=== PATIENT | female | born 1995 | race Two or more races ===

== ENCOUNTER 2024-03-16 10:00 | Observation (INO) | payer MEDICAID ==
[2024-03-16] MEDS ORDERED: PREN-96 PO (10:46)
[2024-03-16 11:14] LABS: Basophils # (auto) 0 10 ^3/uL (0-0.2); Basophils % (auto) 0.1 % (0.0-2.0); Eosinophils # (auto) 0.1 10 ^3/uL (0-0.8); Hematocrit 38.4 % (36.0-46.0); Hemoglobin 12.9 g/dL (12.2-16.2); Lymphocytes # (auto) 2.6 10 ^3/uL (0.4-5.4); Lymphocytes % (auto) 23.2 % (10.0-50.0); Mean Corpuscular Hemoglobin 27.8 pg (28.0-32.0); Mean Corpuscular Hgb Conc. 33.6 g/dL (32.0-36.0); Mean Corpuscular Volume 82.9 fL (80.0-100.0); Monocytes # (auto) 0.5 10 ^3/uL (0-1.3); Monocytes % (auto) 4.2 % (0.0-12.0); Neutrophils # (auto) 7.9 10 ^3/uL (1.6-8.6); Neutrophils % (auto) 71.5 % (37.0-80.0); Red Blood Cells 4.63 10^6/uL (4.0-5.20); Red Cell Distribution Width 14.6 % (11.8-14.3); White Blood Cell 11.1 10^3/uL (4.4-10.8)
[2024-03-16 11:42] LABS: Alanine Aminotransferase 15 U/L (7-40); Albumin 3.7 g/dL (3.2-4.8); Alkaline Phosphatase 331 U/L (46-116); Anion Gap 9 (5-15); Aspartate Aminotransferase 16 U/L (13-40); Blood Urea Nitrogen 7 mg/dL (9-23); Calcium 9.6 mg/dL (8.7-10.4); Carbon Dioxide 22 mmol/L (20-30); Chloride 106 mmol/L (98-107); Glucose 95 mg/dL (74-106); Potassium 3.6 mmol/L (3.5-5.1); Sodium 137 mmol/L (136-145)
[2024-03-16 11:43] LABS: Bilirubin, Total 0.7 mg/dL (0.2-1.0); Total Protein 6.3 g/dL (5.7-8.2)
== END 2024-03-16 13:05 | disposition home or self-care (01) ==
LOC: LDRP 10:00
PROVIDERS: ADMIT Obstetrics & Gynecology; ATTEND Obstetrics & Gynecology
DX: O26.893 Other specified pregnancy related conditions, third trimester (principal); L29.9 Pruritus, unspecified; Z3A.38 38 weeks gestation of pregnancy
CPT/HCPCS: 36415; 59025; 76818; 80053; 81002; 85025; 94760; G0378

== ENCOUNTER 2024-03-18 21:15 | Inpatient (IN) | payer MEDICAID ==
[~2024-03-18] VITALS: Ht 160 cm; Wt 89.8 kg
[~2024-03-18 21:15] MED LIST: PREN-96 PO
[2024-03-18] MEDS ORDERED: BUTORPHANOL TARTRATE 2 MG/1 ML VIAL IV PRN ×2 (21:30)
[2024-03-18] MEDS ORDERED: NALBUPHINE HCL 10 MG/1ml INJECTION IV PRN (21:30)
[2024-03-18] MEDS ORDERED: NALBUPHINE HCL 10 MG/1ml INJECTION IM PRN (21:30)
[2024-03-18 22:03] LABS: Basophils # (auto) 0 10 ^3/uL (0-0.2); Basophils % (auto) 0.4 % (0.0-2.0); Eosinophils # (auto) 0.1 10 ^3/uL (0-0.8); Eosinophils % (auto) 0.7 % (0.0-7.0); Hematocrit 39.3 % (36.0-46.0); Hemoglobin 13.5 g/dL (12.2-16.2); Lymphocytes # (auto) 2.7 10 ^3/uL (0.4-5.4); Lymphocytes % (auto) 25.2 % (10.0-50.0); Mean Corpuscular Hgb Conc. 34.3 g/dL (32.0-36.0); Mean Corpuscular Volume 81.5 fL (80.0-100.0); Monocytes # (auto) 0.6 10 ^3/uL (0-1.3); Monocytes % (auto) 5.3 % (0.0-12.0); Neutrophils # (auto) 7.3 10 ^3/uL (1.6-8.6); Neutrophils % (auto) 68.4 % (37.0-80.0); Nucleated Red Blood Cells % 0.2 %; Red Blood Cells 4.82 10^6/uL (4.0-5.20); Red Cell Distribution Width 14.5 % (11.8-14.3); White Blood Cell 10.7 10^3/uL (4.4-10.8)
[2024-03-18 22:07] LABS: Urine Bacteria FEW /hpf (None Seen); Urine Blood Negative /uL (Negative); Urine Clarity Turbid (Clear); Urine Color Yellow (Yellow); Urine Mucus FEW (None Seen); Urine Protein, UAD 1+ (Negative); Urine Specific Gravity 1.027 (1.001-1.035); Urine Urobilinogen 2 mg/dL (Negative); Urine WBC 43 /hpf (0 - 5)
[2024-03-18 22:19] LABS: Amphetamine Screen, Urine Neg (NEGATIVE); Barbiturate Scree,Urine Neg (NEGATIVE); Benzodiazephine Screen, Urine Neg (NEGATIVE); Cocaine Screen, Urine Neg (NEGATIVE); Opiate Scree,Urine Neg (NEGATIVE)
[2024-03-18 22:20] LABS: Cannabinoid Screen, Urine Neg (NEGATIVE); Phencyclidine Screen, Urine Neg (NEGATIVE)
[2024-03-18 22:23] LABS: Alanine Aminotransferase 16 U/L (7-40); Albumin 4.1 g/dL (3.2-4.8); Alkaline Phosphatase 367 U/L (46-116); Anion Gap 10 (5-15); Aspartate Aminotransferase 14 U/L (13-40); BUN/Creatinine Ratio 11.1 (10.0-20.0); Bilirubin, Total 0.9 mg/dL (0.2-1.0); Blood Urea Nitrogen 7 mg/dL (9-23); Calcium 9.8 mg/dL (8.7-10.4); Carbon Dioxide 21 mmol/L (20-30); Chloride 107 mmol/L (98-107); Glucose 85 mg/dL (74-106); Potassium 3.8 mmol/L (3.5-5.1); Sodium 138 mmol/L (136-145); Total Protein 6.8 g/dL (5.7-8.2)
[2024-03-18 22:34] LABS: INR 0.96 (0.9-1.15); Partial Thromboplastin Time 25.6 SEC (24.5-34.5); Prothrombin Time 10.2 sec (9.3-11.8)
[2024-03-18] MEDS: LACTATED RINGER'S 1,000 ML IV SCH (22:58)
[2024-03-19] MEDS: ceFAZolin 1GM/50ML 50 ML IV SCH ×2 (00:13→14:19)
[2024-03-19] MEDS: miSOPROStol 50 MCG per PRE-CUT 1/2 TAB PO PRN (04:36)
[2024-03-19] MEDS: URSODIOL 300 MG CAP PO SCH (11:49)
[2024-03-19] MEDS ORDERED: TERBUTALINE SULFATE 1 MG/ML 1ML VIAL SC PRN (14:00)
[2024-03-19] MEDS: LACT. RINGERS/OXYTOCIN 20UNITS 1,000 ML IV SCH (14:41)
[2024-03-19] MEDS ORDERED: LIDOCAINE HCL 2 %PF INJ 10ML AMP IJ ONE (18:45)
[2024-03-19] MEDS ORDERED: LIDOCAINE 1%-Mpf/Epinephrine 1:200,000 30ml VIAL IJ ONE (18:45)
[2024-03-19] MEDS ORDERED: ePHEDrine SULFATE 50 MG/ML AMP IV ONE (18:45)
[2024-03-19] MEDS ORDERED: NALOXONE HCL 0.4 MG/ML VIAL IV ONE (18:45)
[2024-03-19] MEDS: fentaNYL CITRATE 100 MCG/2 ML VL EPI ONE (19:53)
[2024-03-19] MEDS: ROPIVACAINE HCL 200 ML ONE (19:54)
[2024-03-19] MEDS: diphenhdrAMINE HCL 50 MG/1 ML VL IV ONE (20:33)
[2024-03-20] MEDS ORDERED: ACETAMINOPHEN 325 MG TAB PO PRN (07:45)
[2024-03-20] MEDS: LACTATED RINGER'S 500 ML IV ONE (07:47)
[2024-03-20] MEDS ORDERED: miSOPROStol 100 mcg TAB SL PRN (10:30)
[2024-03-20] MEDS ORDERED: miSOPROStol 100 mcg TAB PR PRN (10:30)
[2024-03-20] MEDS: DIPHENOXYLATE W/ATROPINE 2.5 MG TAB PO SCH (10:42)
[2024-03-20] MEDS: LIDOCAINE 2%HCL (LOCAL ANESTH.) INJ 20ML MDV IJ PRN (10:44)
[2024-03-20] MEDS: ONDANSETRON HCL 4 MG/2 ML VIAL IV PRN (10:44)
[2024-03-20] MEDS: CARBOPROST TROMETHAMINE 250 MCG/1ML VIAL IM PRN (10:44)
[2024-03-20] MEDS: TRANEXAMIC ACID 1,000 MG in SODIUM CHL 0.9% 100 ML IV ONE (10:45)
[2024-03-20] MEDS: LACT. RINGERS/OXYTOCIN 20UNITS 500 ML IV ONE ×2 (10:46→10:47)
[2024-03-20] MEDS: ROPIVACAINE HCL 200 ML ONE (10:49)
[2024-03-20] MEDS: METHYLERGONOVINE MALEATE 0.2 MG/ML AMP IM PRN (10:52)
[2024-03-20] MEDS ORDERED: ONDANSETRON ODT 4 MG TAB PO PRN (13:15)
[2024-03-20] MEDS ORDERED: miSOPROStol 100 mcg TAB PO ONE (13:39)
[2024-03-20 15:00] VITALS: BP 119/74; PULSE 83; RESP 18; TEMP 99.4; O2SAT 98
[2024-03-20] MEDS ORDERED: DIPHENOXYLATE W/ATROPINE 2.5 MG TAB PO PRN (16:15)
[2024-03-20 16:16] LABS: Basophils # (auto) 0 10 ^3/uL (0-0.2); Basophils % (auto) 0.1 % (0.0-2.0); Eosinophils # (auto) 0 10 ^3/uL (0-0.8); Hematocrit 31.7 % (36.0-46.0); Hemoglobin 10.9 g/dL (12.2-16.2); Lymphocytes # (auto) 1.5 10 ^3/uL (0.4-5.4); Lymphocytes % (auto) 7.9 % (10.0-50.0); Mean Corpuscular Hemoglobin 28.2 pg (28.0-32.0); Mean Corpuscular Hgb Conc. 34.3 g/dL (32.0-36.0); Mean Corpuscular Volume 82.2 fL (80.0-100.0); Monocytes # (auto) 1.1 10 ^3/uL (0-1.3); Monocytes % (auto) 5.6 % (0.0-12.0); Neutrophils # (auto) 16.7 10 ^3/uL (1.6-8.6); Neutrophils % (auto) 86.4 % (37.0-80.0); Red Blood Cells 3.86 10^6/uL (4.0-5.20); Red Cell Distribution Width 14.7 % (11.8-14.3); White Blood Cell 19.3 10^3/uL (4.4-10.8)
[2024-03-20] MEDS: IBUPROFEN 600 MG TAB PO PRN (17:44)
[2024-03-20] MEDS: FAMOTIDINE (10MG/ML) 2ML VL IV ONE (18:20)
[2024-03-20 19:00] VITALS: BP 116/64; PULSE 113; RESP 18; TEMP 98.5; O2SAT 98
[2024-03-20] MEDS: DOCUSATE SOD 100 MG CAP PO SCH (21:54)
[2024-03-20] MEDS: PHISODERM TOP SOLN 240ML BTL TOP PRN (21:57)
[2024-03-20] MEDS: DERMOPLAST 60ML BOTTLE TOP PRN (21:57)
[2024-03-20] MEDS: WITCH HAZEL-GLYCERIN PAD TOP PRN (21:57)
[2024-03-20] MEDS ORDERED: DIPHENOXYLATE W/ATROPINE 2.5 MG TAB PO SCH (22:00)
[2024-03-20 23:00] VITALS: BP 115/62; PULSE 107; RESP 16; TEMP 98.6; O2SAT 97
[2024-03-21 03:00] VITALS: BP 115/67; PULSE 104; RESP 16; TEMP 98.4; O2SAT 97
[2024-03-21 07:00] VITALS: BP 117/68; PULSE 95; RESP 16; TEMP 98.6; O2SAT 97
[2024-03-21 08:28] LABS: Basophils # (auto) 0 10 ^3/uL (0-0.2); Basophils % (auto) 0.2 % (0.0-2.0); Eosinophils # (auto) 0.1 10 ^3/uL (0-0.8); Eosinophils % (auto) 0.4 % (0.0-7.0); Hematocrit 25.6 % (36.0-46.0); Hemoglobin 8.5 g/dL (12.2-16.2); Lymphocytes # (auto) 2.9 10 ^3/uL (0.4-5.4); Lymphocytes % (auto) 21.2 % (10.0-50.0); Mean Corpuscular Hemoglobin 27.7 pg (28.0-32.0); Mean Corpuscular Hgb Conc. 33.3 g/dL (32.0-36.0); Mean Corpuscular Volume 83.2 fL (80.0-100.0); Monocytes # (auto) 0.8 10 ^3/uL (0-1.3); Monocytes % (auto) 5.6 % (0.0-12.0); Neutrophils # (auto) 9.8 10 ^3/uL (1.6-8.6); Neutrophils % (auto) 72.6 % (37.0-80.0); Red Blood Cells 3.08 10^6/uL (4.0-5.20); White Blood Cell 13.5 10^3/uL (4.4-10.8)
[2024-03-21] MEDS: MEASLES, MUMPS & RUBELLA VAC(MMRII) 0.5ML SC ONE (12:55)
[2024-03-21] MEDS: TETANUS-DIPTH-ACEL PERTUSSIS 0.5ML SYR Tdap IM ONE (12:56)
== END 2024-03-21 13:30 | disposition home or self-care (01) | DRG 560 ==
LOC: LDRP 21:15
PROVIDERS: ADMIT Obstetrics & Gynecology; ATTEND Obstetrics & Gynecology
PROC: 10D07Z6 Extraction of Products of Conception, Vacuum, Via Natural or Artificial Opening (ICD-10-PCS; principal; 2024-03-20)
PROC: 3E0R3BZ Introduction of Anesthetic Agent into Spinal Canal, Percutaneous Approach (ICD-10-PCS; 2024-03-20)
PROC: 0KQM0ZZ Repair Perineum Muscle, Open Approach (ICD-10-PCS; 2024-03-20)
PROC: 00HU33Z Insertion of Infusion Device into Spinal Canal, Percutaneous Approach (ICD-10-PCS; 2024-03-20)
PROC: 3E033VJ Introduction of Other Hormone into Peripheral Vein, Percutaneous Approach (ICD-10-PCS; 2024-03-20)
DX: O26.643 Intrahepatic cholestasis of pregnancy, third trimester (principal); Z37.0 Single live birth; O72.1 Other immediate postpartum hemorrhage; O70.1 Second degree perineal laceration during delivery; Z3A.38 38 weeks gestation of pregnancy
CPT/HCPCS: 36415; 59025; 59409; 62282; 80053; 80307; 81001; 85025; 85610; 85730; 86592; 86703; 86803; 86850; 86900; 86901; 90715; 94760; 94762; 96360; 96361; 96365; 96366; 96372; 96374; G0378; J2405; J2590